=== PATIENT | male | born 1995 | race Caucasian/White ===

== ENCOUNTER 2020-06-23 19:23 | Emergency (ER) | payer BC, OTHER ==
[~2020-06-23] VITALS: Ht 172.7 cm; Wt 103.5 kg
--- NOTE | 2020-06-23 19:44 | ED Lower Extremity ---
General Stated Complaint: RIGHT LEG PAIN Source: patient Exam Limitations: no limitations History of Present Illness Date Seen by Provider: Jun 23, 2020 Time Seen by Provider: 19:39 Otherwise healthy 24-year-old male presents with leg pain, chest pain, and shortness of breath. Patient works at a local [employer] and today noted some pain behind his right knee that radiated up to his groin and down to his leg. Patient also states he has been having some chest tightness and shortness of air yesterday but it is gone today. No injuries at work. Patient is very anxious because his grandfather of a blood clot. Patient denies any fevers, chills, dyspnea on exertion, abdominal pain, nausea, vomiting, dysuria. Patient denies any alcohol tobacco or drug use. He states that he knows he has high blood pressure but otherwise no medical problems. Takes no medications. Allergies and Home Medications Allergies Coded Allergies: No Known Drug Allergies (Unverified , 06/23/20) Patient Home Medication List Home Medication List Reviewed: Yes Review of Systems Constitutional: No chills, No fever EENTM: No double vision, No throat pain Respiratory: No cough; short of breath Cardiovascular: chest pain; No edema, No palpitations Gastrointestinal: No abdominal pain, No diarrhea, No nausea, No vomiting Genitourinary: No dysuria, No frequency Musculoskeletal: No back pain Skin: No change in color, No lesions, No rash All Other Systems Reviewed Negative Unless Noted: Yes Past [id number]-[id number] Hx Patient Social History Alcohol Use: Denies Use Smoking Status: Light Tobacco Smoker Type Used: Cigars Alcohol Use?: No Family Medical History Reviewed Nursing Family Hx Physical Exam Vital Signs Vital Signs - First Documented 06/23/20 19:29 Temp 37.0 Pulse 73 Resp 18 B/P (MAP) 173/104 (127) Pulse Ox 98 O2 Delivery Room Air Capillary Refill : Height, Weight, BMI Height: '" Weight: lbs. oz. kg; BMI Method: General Appearance: WD/WN, no apparent distress HEENT: PERRL/EOMI, normal ENT inspection Neck: non-tender, full range of motion Cardiovascular: regular rate, rhythm, no edema, no murmur Respiratory: chest non-tender, lungs clear, normal breath sounds Gastrointestinal: normal bowel sounds, non tender, soft Hips: bilateral hip non-tender, bilateral hip normal inspection, bilateral hip normal range of motion, bilateral hip no evidence of injury Legs: bilateral leg non-tender, bilateral leg normal inspection, bilateral leg normal range of motion, bilateral leg no evidence of injury Knees: bilateral knee non-tender, bilateral knee normal inspection, bilateral knee normal range of motion, bilateral knee no evidence of injury Ankles: bilateral ankle non-tender, bilateral ankle normal inspection, bilateral ankle normal range of motion, bilateral ankle no evidence of injury Feet: bilateral foot non-tender, bilateral foot normal inspection, bilateral foot normal range of motion, bilateral foot no evidence of injury Neurologic/Tendon: normal sensation, normal motor functions Neurologic/Psychiatric: no motor/sensory deficits, alert, normal mood/affect, oriented x 3 Skin: normal color, warm/dry Lymphatic: no adenopathy Progress/Results/Core Measures Results/Orders Lab Results Laboratory Tests Test 06/23/20 20:10 Range/Units White Blood Count 10.6 4.3-11.0 10^3/uL Red Blood Count 5.47 4.35-5.85 10^6/uL Hemoglobin 16.6 13.3-17.7 G/DL Hematocrit 47 40-54 % Mean Corpuscular Volume 87 80-99 FL Mean Corpuscular Hemoglobin 30 25-34 PG Mean Corpuscular Hemoglobin Concent 35 32-36 G/DL Red Cell Distribution Width 12.3 10.0-14.5 % Platelet Count 267 130-400 10^3/uL Mean Platelet Volume 9.5 7.4-10.4 FL Immature Granulocyte % (Auto) 0 % Neutrophils (%) (Auto) 53 42-75 % Lymphocytes (%) (Auto) 33 12-44 % Monocytes (%) (Auto) 11 0-12 % Eosinophils (%) (Auto) 2 0-10 % Basophils (%) (Auto) 1 0-10 % Neutrophils # (Auto) 5.6 1.8-7.8 X 10^3 Lymphocytes # (Auto) 3.5 1.0-4.0 X 10^3 Monocytes # (Auto) 1.2 H 0.0-1.0 X 10^3 Eosinophils # (Auto) 0.2 0.0-0.3 10^3/uL Basophils # (Auto) 0.1 0.0-0.1 10^3/uL Immature Granulocyte # (Auto) 0.0 0.0-0.1 10^3/uL D-Dimer 0.17 0.00-0.49 UG/ML Sodium Level 137 135-145 MMOL/L Potassium Level 3.7 3.6-5.0 MMOL/L Chloride Level 103 98-107 MMOL/L Carbon Dioxide Level 24 21-32 MMOL/L Anion Gap 10 5-14 MMOL/L Blood Urea Nitrogen 12 7-18 MG/DL Creatinine 0.71 0.60-1.30 MG/DL Estimat Glomerular Filtration Rate > 60 BUN/Creatinine Ratio 17 Glucose Level 89 70-105 MG/DL Calcium Level 9.4 8.5-10.1 MG/DL Corrected Calcium 9.2 8.5-10.1 MG/DL Magnesium Level 2.1 1.6-2.4 MG/DL Total Bilirubin 0.4 0.1-1.0 MG/DL Aspartate Amino Transf (AST/SGOT) 27 5-34 U/L Alanine Aminotransferase (ALT/SGPT) 32 0-55 U/L Alkaline Phosphatase 69 40-136 U/L Troponin I < 0.30 <0.30 NG/ML Total Protein 7.4 6.4-8.2 GM/DL Albumin 4.2 3.2-4.5 GM/DL Lipase 25 8-78 U/L My Orders Orders - ARTURO CABRERA MD Comprehensive Metabolic Panel (06/23/20 19:44) Fibrin Degradation Products (06/23/20 19:44) Cbc With Automated Diff (06/23/20 19:44) Lipase (06/23/20 19:44) Troponin I Fs (06/23/20 19:44) Magnesium (06/23/20 19:44) Chest 1 View Ap/Pa Only (06/23/20 19:44) Ekg Tracing (06/23/20 19:44) Ed Iv/Invasive Line Start (06/23/20 19:44) Phosphorus (06/23/20 20:10) Vital Signs/I&O 06/23/20 19:29 Temp 37.0 Pulse 73 Resp 18 B/P (MAP) 173/104 (127) Pulse Ox 98 O2 Delivery Room Air Progress Progress Note : Progress Note Patient sleeping throughout most of ER visit. Labs, EKG, imaging reassuring. With low D-dimer likelihood of DVT/PE very low. Chest x-ray negative for acute findings of pneumonia, pleural effusion, pneumothorax. EKG without findings for ACS or any arrhythmias. Chemistries and hematin otology reassuring. Discussed with patient likelihood of this is musculoskeletal in nature and recommend NSAIDs and stretching and ice. Discussed reasons to return the emergency room. Patient voiced understanding and agreement with plan of care Initial ECG Impression Date: Jun 23, 2020 Initial ECG Impression Time: 22:01 Initial ECG Rate: 53 Initial ECG Rhythm: Normal Sinus Initial ECG Intervals: Normal Initial ECG Impression: Normal Diagnostic Imaging Diagonstic Imaging: Xray Plain Films/CT/US/NM/MRI: chest Comments CHEST 1 VIEW AP/PA ONLY EXAMINATION: Chest radiograph, portable AP view. DATE: 06/23/2020 7:59 PM INDICATION: 24-year-old male, chest pain. COMPARISON: None. FINDINGS: Heart size and mediastinal contours are unremarkable. There is no identified pneumothorax. There is no large pleural effusion. There is no identified focal airspace consolidation. IMPRESSION: No identified acute cardiopulmonary abnormality Departure Impression Primary Impression: Thigh sprain Qualified Codes: S73.101A - Unspecified sprain of right hip, initial encounter Additional Impression: Anxiety Disposition: 01 HOME, SELF-CARE Condition: Stable Departure-Patient Inst. Decision time for Depature: 21:14 Referrals: NO,LOCAL PHYSICIAN (PCP/Family) Primary Care Physician Patient Instructions: Muscle and Bone Pain (DC) ARTURO CABRERA MD Jun 23, 2020 19:44
--- NOTE | 2020-06-23 20:01 | Diagnostic Imaging Report ---
EXAMINATION: Chest radiograph, portable AP view. DATE: 06/23/2020 7:59 PM INDICATION: 24-year-old male, chest pain. COMPARISON: None. FINDINGS: Heart size and mediastinal contours are unremarkable. There is no identified pneumothorax. There is no large pleural effusion. There is no identified focal airspace consolidation. IMPRESSION: No identified acute cardiopulmonary abnormality. Dictated by: Dictated on workstation # [id number]
[2020-06-23 20:21] LABS: WHITE BLOOD COUNT 10.6 10^3/uL (4.3-11.0)
[2020-06-23 20:22] LABS: BASOPHILS # (AUTO) 0.1 10^3/uL (0.0-0.1); BASOPHILS % (AUTO) 1 % (0-10); EOSINOPHILS # (AUTO) 0.2 10^3/uL (0.0-0.3); EOSINOPHILS % (AUTO) 2 % (0-10); HEMATOCRIT 47 % (40-54); HEMOGLOBIN 16.6 G/DL (13.3-17.7); LYMPHOCYTES # (AUTO) 3.5 X 10^3 (1.0-4.0); LYMPHOCYTES % (AUTO) 33 % (12-44); MEAN CORPUSCULAR HEMOGLOBIN 30 PG (25-34); MEAN CORPUSCULAR HGB CONC 35 G/DL (32-36); MEAN CORPUSCULAR VOLUME 87 FL (80-99); MEAN PLATELET VOLUME 9.5 FL (7.4-10.4); MONOCYTES # (AUTO) 1.2 X 10^3 (0.0-1.0); MONOCYTES % (AUTO) 11 % (0-12); NEUTROPHILS # (AUTO) 5.6 X 10^3 (1.8-7.8); NEUTROPHILS % (AUTO) 53 % (42-75); PLATELET COUNT 267 10^3/uL (130-400)
[2020-06-23 20:34] LABS: BUN/CREATININE RATIO 17; CARBON DIOXIDE 24 MMOL/L (21-32); CHLORIDE 103 MMOL/L (98-107); CREATININE SERUM 0.71 MG/DL (0.60-1.30); GFR ESTIMATED > 60; POTASSIUM 3.7 MMOL/L (3.6-5.0); SODIUM 137 MMOL/L (135-145)
[2020-06-23 20:35] LABS: ALANINE AMINOTRANSFERASE 32 U/L (0-55); ALBUMIN 4.2 GM/DL (3.2-4.5); ALKALINE PHOSPHATASE 69 U/L (40-136); BILIRUBIN,TOTAL 0.4 MG/DL (0.1-1.0); CALCIUM 9.4 MG/DL (8.5-10.1); GLUCOSE 89 MG/DL (70-105); LIPASE 25 U/L (8-78); MAGNESIUM 2.1 MG/DL (1.6-2.4); TOTAL PROTEIN 7.4 GM/DL (6.4-8.2)
[2020-06-23 21:17] VITALS: BP 145/87
== END 2020-06-23 21:17 | disposition home or self-care (01) ==
LOC: ER FS 19:28
DX: S73.101A Unspecified sprain of right hip, initial encounter (principal); F41.9 Anxiety disorder, unspecified; I10 Essential (primary) hypertension; F17.290 Nicotine dependence, other tobacco product, uncomplicated; X58.XXXA Exposure to other specified factors, initial encounter; Y92.524 Gas station as the place of occurrence of the external cause
CPT/HCPCS: 36415; 71045; 80053; 83690; 83735; 84100; 84484; 85025; 85379; 93005